=== PATIENT | female | born 1975 | race Two or more races ===

== ENCOUNTER 2016-08-15 19:12 | Emergency (ER) | payer MEDICAID, OTHER ==
[~2016-08-15] VITALS: Ht 170.2 cm; Wt 72.6 kg
[2016-08-15 19:35] VITALS: BP 160/104
[2016-08-15 20:25] LABS: Basophils # (auto) 0 uL; Basophils % (auto) 0.4 % (0.0-2.0); Eosinophils # (auto) 0.3 uL; Eosinophils % (auto) 2.5 % (0.0-7.0); Hematocrit 43.9 % (36.0-46.0); Hemoglobin 14.7 g/dL (12.2-16.2); Lymphocytes # (auto) 2.4 uL; Lymphocytes % (auto) 21.9 % (10.0-50.0); Mean Corpuscular Hgb Conc. 33.4 g/dL (32.0-36.0); Mean Corpuscular Volume 95.7 fL (80.0-100.0); Monocytes # (auto) 0.4 uL; Monocytes % (auto) 3.7 % (0.0-12.0); Neutrophils # (auto) 7.9 uL; Neutrophils % (auto) 71.5 % (37.0-80.0); Platelet Count (auto) 297 10^3/uL (140-450); Red Cell Distribution Width 13.2 % (11.6-16.0); White Blood Cell 11.1 10^3/uL (4.4-10.8)
[2016-08-15 20:34] LABS: Urine Bilirubin Negative (Negative); Urine Color Yellow (Yellow); Urine Glucose Normal (Normal); Urine Ketone Negative (Negative); Urine Nitrite Negative (Negative); Urine RBC 300 /hpf (0 - 4); Urine Squamous Epithelial Cell FEW /hpf (<5); Urine Urobilinogen Normal (Negative)
[2016-08-15 20:35] LABS: Urine Blood 2+ /uL (Negative)
[2016-08-15 20:46] LABS: Albumin 3.9 g/dL (3.4-5.0); BUN/Creatinine Ratio 13.4; Calcium 8.5 mg/dL (8.5-10.1); Potassium 3.5 mmol/L (3.5-5.1)
[2016-08-15 20:48] LABS: Bilirubin, Total 0.4 mg/dL (0.2-1.0); Magnesium 2.1 mg/dL (1.6-2.6); Total Protein 7.7 g/dL (6.4-8.2)
== END 2016-08-16 00:16 | disposition left against medical advice (07) ==
LOC: ER 19:20
DX: R07.9 Chest pain, unspecified (principal); R05 Cough; Z53.21 Procedure and treatment not carried out due to patient leaving prior to being seen by health care provider
CPT/HCPCS: 36415; 71020; 80053; 81001; 83735; 84484; 84702; 85025; 93005

== ENCOUNTER 2021-12-18 05:07 | Emergency (ER) | payer MEDICAID ==
[~2021-12-18] VITALS: Ht 170.2 cm; Wt 86.2 kg
[2021-12-18 05:19] VITALS: BP 182/100
[2021-12-18] MEDS ORDERED: LISI20TA28 PO (06:37)
[2021-12-18] MEDS ORDERED: AZIT500T66 PO (06:37)
[2021-12-18] MEDS ORDERED: PROM1SOL4 PO (06:37)
[2021-12-18] MEDS ORDERED: LISINOPRIL 20 MG TAB PO ONE (06:45)
== END 2021-12-18 07:15 | disposition home or self-care (01) ==
LOC: ER 05:07
DX: J20.9 Acute bronchitis, unspecified (principal); J03.90 Acute tonsillitis, unspecified; I10 Essential (primary) hypertension; F17.210 Nicotine dependence, cigarettes, uncomplicated

== ENCOUNTER 2022-08-20 07:01 | Emergency (ER) | payer MEDICAID ==
[~2022-08-20] VITALS: Ht 170.2 cm; Wt 90.2 kg
[~2022-08-20 07:01] MED LIST: AZIT500T66 PO; LISI20TA28 PO; PROM1SOL4 PO
[2022-08-20 07:38] VITALS: BP 162/96
[2022-08-20] MEDS ORDERED: KETOROLAC TROMETH 60MG/2ML VIAL IM ONE (07:45)
[2022-08-20] MEDS ORDERED: methylPREDNISolone SOD SUCC 125 MG/2 ML VL IM ONE (08:30)
[2022-08-20] MEDS ORDERED: COLC1CAP PO (08:41)
[2022-08-20] MEDS ORDERED: INDO50CA82 PO (08:41)
== END 2022-08-20 08:46 | disposition home or self-care (01) ==
LOC: ER 07:01
DX: M10.9 Gout, unspecified (principal); I10 Essential (primary) hypertension; F17.210 Nicotine dependence, cigarettes, uncomplicated; Z79.2 Long term (current) use of antibiotics; Z79.899 Other long term (current) drug therapy
CPT/HCPCS: 73610; 96372; 99284; J1885; J2930

== ENCOUNTER 2022-11-13 07:06 | Emergency (ER) | payer MEDICAID ==
[~2022-11-13] VITALS: Ht 175.3 cm; Wt 86.5 kg
[~2022-11-13 07:06] MED LIST changes: +COLC1CAP PO; +INDO50CA82 PO
[2022-11-13] MEDS ORDERED: BENZ100C19 PO (08:10)
[2022-11-13] MEDS ORDERED: AZIT500T66 PO (08:10)
[2022-11-13] MEDS ORDERED: CIP03OS LEFTEYE (08:10)
[2022-11-13 08:15] VITALS: BP 149/101
== END 2022-11-13 08:21 | disposition home or self-care (01) ==
LOC: ER 07:06
DX: J03.90 Acute tonsillitis, unspecified (principal); J20.9 Acute bronchitis, unspecified; H11.32 Conjunctival hemorrhage, left eye; I10 Essential (primary) hypertension; F17.210 Nicotine dependence, cigarettes, uncomplicated
CPT/HCPCS: 71046

== ENCOUNTER 2023-05-06 07:28 | Emergency (ER) | payer MEDICAID ==
[~2023-05-06] VITALS: Ht 170.2 cm; Wt 91.2 kg
[~2023-05-06 07:28] MED LIST changes: +BENZ100C19 PO; +CIP03OS LEFTEYE; -LISI20TA28 PO; +LISI20TA56 PO
[2023-05-06 07:56] VITALS: BP 156/94; PULSE 94; RESP 18; TEMP 98.2; O2SAT 97
[2023-05-06] MEDS ORDERED: ACET-1080 PO (08:39)
[2023-05-06] MEDS ORDERED: TOB03OS OP (08:39)
== END 2023-05-06 08:43 | disposition home or self-care (01) ==
LOC: ER 07:28
DX: G44.209 Tension-type headache, unspecified, not intractable (principal); H10.33 Unspecified acute conjunctivitis, bilateral; I10 Essential (primary) hypertension; F17.210 Nicotine dependence, cigarettes, uncomplicated; Z79.2 Long term (current) use of antibiotics; Z79.899 Other long term (current) drug therapy
CPT/HCPCS: 70450

== ENCOUNTER 2025-07-09 05:40 | Emergency (ER) | payer MEDICAID ==
[~2025-07-09] VITALS: Ht 170.2 cm; Wt 82.0 kg
[~2025-07-09 05:40] MED LIST changes: +ACET-1080 PO; +ACET300T58 PO; +AUG875T PO; +IBUP-1455 PO; +NYS5LQ MT; +TOB03OS OP
--- NOTE | 2025-07-09 06:40 | ED.PDOC ---
Psychiatric HPI Comments 49-year-old female presents to the ER with a prior MHx of anxiety in the chief complaint of anxiety. Patient reports on waking up from a deep sleep earlier this morning and started having dizziness S/P drinking water associated with a palpitations and chest heaviness. The patient in triage had a blood pressure 169/110. Denies any other symptoms at this time. Associated signs and symptoms Denies having this before Denies history of ID or CVA Denies lightheadedness or dizziness Denies acid reflux, recurrent bitter/sour taste in mouth Denies shortness of breath Denies palpitations, leg swelling Denies family history of heart issues or ID Denies history of panic attacks Denies recent trauma to the chest, history of significant trauma to the chest nor surgeries of the chest Denies fever chills nausea vomiting diarrhea Chief Complaint: Anxiety Time Seen by MD: 06:35 Primary Care Provider: FE Servin Notes: Nurses Notes, Medications, Allergies Information Source: Patient Mode of Arrival: Ambulatory Severity: Able to Care for Self Severity of Pain: Mild Severity of Mental Status: Mild Severity of Symptoms: Mild Timing: Minutes Duration: Since onset, Minutes Prehospital treatment: None Presents with: Anxiety Ingestion: None Circumstance: None Current substance abuse: None Stressors: None History of: None Quality: None Location: None Location of pain or injury: None Associated signs and symptoms: Anxiety Past Medical History PAST MEDICAL HISTORY: HTN Surgical History: Denies all surgeries [employer] History: Denies all [employer] Hx Family History Family History: Reviewed,noncontributory to illness, Unknown Social History Smoker: Cigarettes Alcohol: Occasionally Drugs: Denies Drug Use Lives In: Home Constitutional: denies: chills, diaphoresis, fatigue, fever, malaise, sweats, weakness, others EENTM: denies: blurred vision, double vision, ear bleeding, ear discharge, ear drainage, ear pain, ear ringing, eye pain, eye redness, hearing loss, mouth pain, mouth swelling, nasal discharge, nose bleeding, nose congestion, nose pain, photophobia, tearing, throat pain, throat swelling, voice changes, others Respiratory: denies: cough, hemoptysis, orthopnea, SOB at rest, shortness of breath, SOB with excertion, stridor, wheezing, others Cardiovascular: reports: palpitations, others (elevated BP); denies: chest pain, dizzy spells, diaphoresis, Dyspnea on exertion, edema, irregular heart beat, left arm pain, lightheadedness, PND, syncope Gastrointestinal: denies: abdomen distended, abdominal pain, blood streaked bowels, constipated, diarrhea, dysphagia, difficulty swallowing, hematemesis, melena, nausea, poor appetite, poor fluid intake, rectal bleeding, rectal pain, vomiting, others Genitourinary: denies: abnormal vagina bleeding, burning, dyspareunia, dysuria, flank pain, frequency, hematuria, incontinence, pain, , vagina discharge, urgency, others Neurological: denies: dizziness, fainting, headache, left sided numbness, left sided weakness, numbness, paresthesia, pre-existing deficit, right sided numbness, right sided weakness, seizure, speech problems, tingling, tremors, weakness, others Musculoskeletal: denies: back pain, gout, joint pain, joint swelling, muscle pain, muscle stiffness, neck pain, others Integumetry: denies: bruises, change in color, change in hair/nails, dryness, laceration, lesions, lumps, rash, wounds, others Allergic/Immunocompromised: denies: Difficulty Healing, Frequent Infections, Hives, Itching, others Hematologic/Lymphatic: denies: anemia, blood clots, easy bleeding, easy bruising, swollen glands, others Endocrine: denies: excessive hunger, excessive sweating, excessive thirst, excessive urination, flushing, intolerance to cold, intolerance to heat, unexplained weight gain, unexplained weight loss, others Psychiatric: reports: anxiety; denies: bipolar disorder, depression, hopeless, panic disorder, schizophrenia, sleepless, suicidal, others All Other Systems: Reviewed and Negative Physical Exam General Appearance: No Apparent Distress, Normal HEENT: Normal ENT Inspection, Pharynx Normal, TMs Normal Neck: Full Range of Motion, Non-Tender, Normal, Normal Inspection Respiratory: Chest Non-Tender, Lungs Clear, No Accessory Muscle Use, No Respiratory Distress, Normal Breath Sounds Cardiovascular: No Edema, No JVD, No Murmur, No Gallop, Normal Peripheral Pulses, Regular Rate/Rhythm Breast Exam: Deferred Gastrointestinal: No Organomegaly, Non Tender, No Pulsatile Mass, Normal Bowel Sounds, Soft Genitalia: Deferred Pelvic: Deferred Rectal: Deferred Extremities: No calf tenderness, Normal capillary refill, Normal inspection, N ormal range of motion, Non-tender, No pedal edema Musculoskeletal : Apperance: Normal Neurologic: Alert, washtub worker II-XII nml as Tested, No Motor Deficits, Normal Affect, Normal Mood, No Sensory Deficits Cerebellar Function: Normal Reflexes: Normal Skin: Dry, Normal Color, Warm Lymphatic: No Adenopathy Was a procedure done? Was a procedure done?: No X-Ray, Labs, Meds, VS Vital Signs Date Time Temp Pulse Resp B/P (MAP) Pulse Ox O2 Delivery O2 Flow Rate FiO2 07/09/25 07:24 89 19 96 Room Air 07/09/25 07:24 98.5 89 19 166/95 (118) 96 98.5 07/09/25 05:44 97.6 105 20 169/110 95 97.6 X-Ray, Labs, Meds, VS Comment Patient arrives alert and oriented, ABC's intact, afebrile, vital signs stable, saturating well in room air Peripheral IV insertion+ labs were ordered. CBC was ordered to exclude anemia, blood loss, or infection. BMP was ordered to exclude electrolyte abnormalities, renal failure, dehydration, hyperglycemia UA, thyroid stimulating Additional MDM Review of External, Non-ED records: External records reviewed. Discussion with independent historian (EMS, family) history obtained from the patient/parents (if applicable) at bedside Chronic conditions affecting care: None Social determinants of health affecting care: None Consideration of admission (observation or admission): I considered escalation of care to admission for this patient, however given the reassuring workup, the patient is safe for outpatient management. Discussion with the Radiology: No Tests considered but not performed: Prescription medication considered but not given: 12 lead EKG interpretation: Time of 1ST Reevaluation: 07:05 Reevaluation 1ST: Unchanged Patient Education/Counseling: Diagnosis, Treatment, Prognosis Family Education/Counseling: No Family Present Departure 1 Departure Time of Disposition: 08:37 Impression: Primary Impression: Eloped from emergency department Disposition: 01 HOME / SELF CARE / HOMELESS Condition: Stable Critical Care Note Critical Care Time?: No Stability Stability form required: No I personally scribed for TERENCE DENG NP ([email or web address]) on 07/09/25 at 06:40. Electronically submitted by Jose Dsouza ([email or web address]). I personally scribed for TERENCE DENG NP ([email or web address]) on 07/09/25 at 07:41. Electronically submitted by Jose Dsouza ([email or web address]). TERENCE DENG NP Jul 09, 2025 06:40
[2025-07-09 07:24] VITALS: BP 166/95; PULSE 89; RESP 19; TEMP 98.5; O2SAT 96
== END 2025-07-09 08:54 | disposition left against medical advice (07) ==
LOC: ER 05:40
DX: F41.9 Anxiety disorder, unspecified (principal); F17.210 Nicotine dependence, cigarettes, uncomplicated; R07.89 Other chest pain; R00.2 Palpitations; I10 Essential (primary) hypertension